=== PATIENT | female | born 1960 | race Caucasian/White ===

== ENCOUNTER 2017-11-21 17:21 | Observation (INO) ==
[2017-11-21] MEDS ORDERED: Nitroglycerin 0.4 MG TAB.SUBL SL ONE (17:39)
[2017-11-21] MEDS ORDERED: Aspirin 81 MG TAB.CHEW PO ONE (17:39)
[2017-11-21] MEDS ORDERED: 0.9 % Sodium Chloride 1,000 ML IVC ONE (17:40)
--- NOTE | 2017-11-21 17:42 | Emergency Department Note ---
Disposition Clinical Impression: Elevated blood pressure reading Chest pain Qualifiers: Chest pain type: unspecified Qualified Code(s): R07.9 - Chest pain, unspecified Disposition: Admitted As Inpatient Condition: Fair Referrals: Rex Dalton Jr, MD [Primary Care Provider] - Forms: ED Satisfaction Letter Time of Disposition: 19:27 Chest Pain HPI - General Chief Complaint: ED Chest Pain Stated Complaint: CP/SOB Time Seen by Provider: 11/21/17 17:30 Source: patient Mode of arrival: ambulatory Limitations: no limitations Vital Signs Reviewed: Yes Nursing Notes Reviewed: Yes - History of Present Illness HPI Narrative: 56-year-old female with a history of tachycardia presents for evaluation of chest pain and shortness of breath. Patient states symptom onset was an hour and a half prior to ED arrival. States that she was finished eating. At the time the patient states he felt nauseous and had sharp retrosternal chest pain with prominent left-sided features. Patient was not exerting herself the time. Patient denies any vomiting or diaphoresis. Patient reports an episode of diarrhea. Patient states that she had a difficult time catching her breath. Patient states that the pain has since been improving since arrival to the ED. Patient denies any fevers. States he has had a history of headache and fever in the past. Patient denies any abdominal pain. Severity scale (1-10): 3 - Related Data Home Medications Medication Instructions Recorded Confirmed Levothyroxine [Synthroid] 50 mcg PO 0630 04/09/16 04/09/16 Verapamil HCl [Verapamil ER] 240 mg PO DAILY 04/09/16 04/09/16 Previous Rx's Medication Instructions Recorded HYDROcodone/Acet 5/325 mg [[place] 1 tab PO Q4H PRN #10 tab 04/09/16 5-325 mg] cephALEXin [Cephalexin] 500 mg PO BID #14 tablet 11/17/17 Allergies Allergy/AdvReac Type Severity Reaction Status Date / Time No Known Allergies Allergy Verified 04/09/16 11:40 All systems ED: reviewed and negative except as stated. Constitutional: Denies: fever Cardiovascular: Reports: chest pain Respiratory: Reports: dyspnea. Denies: cough Gastrointestinal: Reports: diarrhea. Denies: abdominal pain, nausea, vomiting Chest Pain PMH - Past Medical History Medical history: Reports: arthritis, thyroid disease Psychiatric history: Reports: no psych history - Social History Smoking Status: Never smoker Alcohol use: Reports: none Drug use: Reports: none Physical Exam - General Limitations: no limitations General appearance: alert, in no apparent distress - Head Head exam: atraumatic, normocephalic, normal inspection - Eye Eye exam: Present: normal appearance, PERRL, EOMI - ENT ENT exam: normal exam, normal oropharynx, mucous membranes moist - Neck Neck exam: Present: normal inspection, full ROM - Chest Chest inspection: Present: normal inspection, symmetric chest wall rise - Respiratory Respiratory exam: Present: normal lung sounds bilaterally. Absent: respiratory distress - Cardiovascular Cardiovascular exam: Present: regular rate, normal rhythm - Abdominal Exam Abdominal exam: Present: soft, Non-Tender - Extremities Exam Extremities exam: Present: normal inspection. Absent: pedal edema - Back Exam Back exam: Present: normal inspection. Absent: CVA tenderness (R), CVA tenderness (L) - Neurological Exam Neurological exam: Present: alert, oriented X3, CN II-XII intact - Skin Skin exam: Present: warm, dry, intact, normal color Course Course Narrative: Patient seen and examined. Patient appears to be in no acute distress. Patient will get the basic cardiac evaluation with EKG, troponin, chest x-ray. Patient was notably hypertensive. Patient will also be given aspirin and nitroglycerin. Patient was deemed low risk [place] and will get a d-dimer. - Reevaluation(s) Reevaluation #1: Patient reports a relief of pain following nitro. Time: 18:10 Reevaluation #2: Patient continues to be resting comfortably. No acute distress. Time: 18:24 Reevaluation #3: Patient seen and examined. Patient's resting comfortably. Patient's updated on plan of care. Recommend admission. Patient's agreeable. Time: 19:32 Vital Signs Temperature 97.6 F 11/21/17 17:23 Pulse Rate 61 11/21/17 17:23 Respiratory Rate 18 11/21/17 17:23 Blood Pressure 160/80 11/21/17 17:23 O2 Sat by Pulse Oximetry 99 11/21/17 17:23 Temperature 97.6 F 11/21/17 17:23 Pulse Rate 60 11/21/17 18:37 Respiratory Rate 13 11/21/17 18:37 Blood Pressure 141/79 11/21/17 18:37 O2 Sat by Pulse Oximetry 99 11/21/17 18:37 Oxygen Delivery Oxygen Delivery Room Air Chest Pain - MDM Narrative Medical decision making narrative: Patient presents with concerns of chest pain. Patient had a moderately suspicious story. Patient's labs reviewed. Patient had a single troponin given the time frame is not consistently rule out ACS. Patient's EKG shows no acute abnormalities. Initial left axis deviation prior to past EKGs. Patient was given aspirin as well as nitroglycerin. Patient's chest pain resolved after nitroglycerin. Patient's resting comfortably. Heart scores 4. Given the patient's clinical exam and improvement with nitroglycerin with elevated blood pressure the patient should be admitted to the hospital service for further evaluation monitoring. Patient did not have heparin started emergency department as her chest pain is free with no elevated troponin. - Lab Data Lab results reviewed: Yes I reviewed the patient's lab results. Result diagrams: 11/21/17 17:57 11/21/17 17:57 Lab Results 11/21/17 11/21/17 11/21/17 Range/Units 17:57 17:57 17:57 WBC (4.3-11.1) K/mcL RBC (3.82-4.97) M/mcL Hgb (11.5-15.4) g/dL Hct (35.3-44.9) % MCV (83.0-100.0) fL MCH (28.0-33.3) pg MCHC (31.6-35.5) g/dL RDW (11.5-14.5) % Plt Count (140-400) K/mcL MPV (9.4-12.4) fL Immature Gran % (0-4) % Seg Neutrophils % % Lymphocytes % % Monocytes % % Eosinophils % % Basophils % % Neutrophils # (1.6-8.9) K/mcL Lymphocytes # (0.6-4.6) K/mcL Monocytes # (0.0-1.3) K/mcL Eosinophils # (0.0-0.6) K/mcL Basophils # (0.0-0.2) K/mcL D-Dimer 846 H (0-500) ng/mLFEU Sodium (136-145) mEq/L Potassium (3.5-5.1) mEq/L Chloride (98-107) mEq/L Carbon Dioxide (23-29) mEq/L BUN (6-20) mg/dL Creatinine (0.60-1.20) mg/dL Est GFR ( Amer) (> 60) Est GFR (Non-Af Amer) (> 60) BUN/Creatinine Ratio (6-26) Glucose (70-105) mg/dL Calculated Osmolality (280-300) Calcium (8.6-10.3) mg/dL Troponin I (< 0.04) ng/mL B-Natriuretic Peptide 35 (Less than 100) pg/mL Lipase 31 (11-82) Units/L 11/21/17 11/21/17 Range/Units 17:57 17:57 WBC 9.7 (4.3-11.1) K/mcL RBC 4.90 (3.82-4.97) M/mcL Hgb 13.5 (11.5-15.4) g/dL Hct 41.7 (35.3-44.9) % MCV 85.1 (83.0-100.0) fL MCH 27.6 L (28.0-33.3) pg MCHC 32.4 (31.6-35.5) g/dL RDW 14.7 H (11.5-14.5) % Plt Count 317 (140-400) K/mcL MPV 9.9 (9.4-12.4) fL Immature Gran % 0.4 (0-4) % Seg Neutrophils % 55.0 % Lymphocytes % 33.6 % Monocytes % 8.2 % Eosinophils % 2.4 % Basophils % 0.4 % Neutrophils # 5.3 (1.6-8.9) K/mcL Lymphocytes # 3.3 (0.6-4.6) K/mcL Monocytes # 0.8 (0.0-1.3) K/mcL Eosinophils # 0.2 (0.0-0.6) K/mcL Basophils # 0.0 (0.0-0.2) K/mcL D-Dimer (0-500) ng/mLFEU Sodium 141 (136-145) mEq/L Potassium 3.8 (3.5-5.1) mEq/L Chloride 105 (98-107) mEq/L Carbon Dioxide 26 (23-29) mEq/L BUN 18 (6-20) mg/dL Creatinine 0.76 (0.60-1.20) mg/dL Est GFR ( Amer) > 60 (> 60) Est GFR (Non-Af Amer) > 60 (> 60) BUN/Creatinine Ratio 24 (6-26) Glucose 100 (70-105) mg/dL Calculated Osmolality 294 (280-300) Calcium 9.3 (8.6-10.3) mg/dL Troponin I < 0.03 (< 0.04) ng/mL B-Natriuretic Peptide (Less than 100) pg/mL Lipase (11-82) Units/L - Radiology Data Radiology results reviewed: Yes I reviewed the patient's radiology results. Chest X-Ray 11/21/17 17:39 IMPRESSION: No acute process. D/ / Hany Huerta MD / Hany Huerta MD Interpreting Provider: Hany Huerta MD Chest X-Ray 11/21/17 17:39 IMPRESSION: No acute process. D/ / Hany Huerta MD / Hany Huerta MD Interpreting Provider: Hany Huerta MD Chest CTA 11/21/17 18:22 IMPRESSION: No evidence of pulmonary embolism or acute pulmonary abnormality. D/ / 11/21/2017 19:21:57 Hernandez Arndt MD / Crystal Guzman Interpreting Provider: Hernandez Arndt MD - EKG Data EKG attestation: Yes I reviewed and interpreted this EKG. EKG shows normal: sinus rhythm Rate: normal Rhythm: NSR [place]/QRS: left axis deviation T wave inversions noted in: aVR, v1 When compared to previous EKG there are: no significant changes Interpretation: no acute changes, nonspecific ST-T wave changes Heart Score - Score History: Moderately Suspicious EKG: Non Specific repolarisation Disturbance Age: 45-65 Risk Factors: 1-2 risk factors Troponin: Less than normal limit HEART Score Total: 4 S.B.A.R. - S.B.A.R. Situation: Demographics Background: Presenting Complaint Assessment: Vital Signs, Course and respsone to treatment, Patient/Family Expectation Recommendation: Barrier(s) to disposition, Recommendation based on pending studies, treatments, or consults SAlaina Report Given to: Dr. Wil Finnegan Repor Time: 19:27 Attestation Statement - Attestation Attestation: I, Tristan Diaz DO, examined this patient [id number] and my medical decision-making was reviewed with Dr. Lev Foss, Resident Physician. I agree with the documented findings, disposition and treatment plan as described except to the extent set forth below. Please see my progress notes for details.
[2017-11-21 18:09] LABS: Basophils % 0.4 %; Eosinophils # 0.2 K/mcL (0.0-0.6); Eosinophils % 2.4 %; Hematocrit 41.7 % (35.3-44.9); Hemoglobin 13.5 g/dL (11.5-15.4); Immature Granulocytes % 0.4 % (0-4); Lymphocytes # 3.3 K/mcL (0.6-4.6); Lymphocytes % 33.6 %; Mean Corpuscular HGB Conc 32.4 g/dL (31.6-35.5); Mean Corpuscular Hemoglobin 27.6 pg (28.0-33.3); Mean Corpuscular Volume 85.1 fL (83.0-100.0); Mean Platelet Volume 9.9 fL (9.4-12.4); Monocytes # 0.8 K/mcL (0.0-1.3); Monocytes % 8.2 %; Neutrophils # 5.3 K/mcL (1.6-8.9); Platelet Count 317 K/mcL (140-400); Red Cell Distribution Width 14.7 % (11.5-14.5)
[2017-11-21] MEDS ORDERED: Isovue-370 500 ML INFUS..BTL IV ONE (18:22)
[2017-11-21 18:36] LABS: BUN/Creatinine Ratio 24 (6-26); Blood Urea Nitrogen 18 mg/dL (6-20); Calcium 9.3 mg/dL (8.6-10.3); Carbon Dioxide 26 mEq/L (23-29); Chloride 105 mEq/L (98-107); Glucose 100 mg/dL (70-105); Osmolality,Calculated 294 (280-300); Potassium 3.8 mEq/L (3.5-5.1); Sodium 141 mEq/L (136-145); eGFR For African Americans > 60 (> 60); eGFR For Non-African Americans > 60 (> 60)
[2017-11-21 18:37] LABS: Troponin I < 0.03 ng/mL (< 0.04)
--- NOTE | 2017-11-21 19:48 | Emergency Department Note ---
Disposition Clinical Impression: Elevated blood pressure reading Chest pain Qualifiers: Chest pain type: unspecified Qualified Code(s): R07.9 - Chest pain, unspecified Disposition: Admitted As Inpatient Condition: Good Referrals: Rex Dalton Jr, MD [Primary Care Provider] - Forms: ED Satisfaction Letter Time of Disposition: 20:01 Chest Pain HPI - General Chief Complaint: ED Chest Pain Stated Complaint: CP/SOB Time Seen by Provider: 11/21/17 17:30 Source: patient Mode of arrival: ambulatory Limitations: no limitations - History of Present Illness Severity scale (1-10): 3 - Related Data Home Medications Medication Instructions Recorded Confirmed Levothyroxine [Synthroid] 50 mcg PO 0630 04/09/16 04/09/16 Verapamil HCl [Verapamil ER] 240 mg PO DAILY 04/09/16 04/09/16 Previous Rx's Medication Instructions Recorded HYDROcodone/Acet 5/325 mg [[place] 1 tab PO Q4H PRN #10 tab 04/09/16 5-325 mg] cephALEXin [Cephalexin] 500 mg PO BID #14 tablet 11/17/17 Allergies Allergy/AdvReac Type Severity Reaction Status Date / Time No Known Allergies Allergy Verified 04/09/16 11:40 Constitutional: Denies: fever Cardiovascular: Reports: chest pain Respiratory: Reports: dyspnea. Denies: cough Gastrointestinal: Reports: diarrhea. Denies: abdominal pain, nausea, vomiting Chest Pain PMH - Past Medical History Medical history: Reports: arthritis, thyroid disease Psychiatric history: Reports: no psych history - Social History Smoking Status: Never smoker Alcohol use: Reports: none Drug use: Reports: none Physical Exam - General Limitations: no limitations General appearance: alert, in no apparent distress Course Vital Signs Temperature 97.6 F 11/21/17 17:23 Pulse Rate 61 11/21/17 17:23 Respiratory Rate 18 11/21/17 17:23 Blood Pressure 160/80 11/21/17 17:23 O2 Sat by Pulse Oximetry 99 11/21/17 17:23 Temperature 97.6 F 11/21/17 17:23 Pulse Rate 60 11/21/17 18:37 Respiratory Rate 13 11/21/17 18:37 Blood Pressure 141/79 11/21/17 18:37 O2 Sat by Pulse Oximetry 99 11/21/17 18:37 Oxygen Delivery Oxygen Delivery Room Air Chest Pain - Lab Data Result diagrams: 11/21/17 17:57 11/21/17 17:57 Lab Results 11/21/17 11/21/17 11/21/17 Range/Units 17:57 17:57 17:57 WBC (4.3-11.1) K/mcL RBC (3.82-4.97) M/mcL Hgb (11.5-15.4) g/dL Hct (35.3-44.9) % MCV (83.0-100.0) fL MCH (28.0-33.3) pg MCHC (31.6-35.5) g/dL RDW (11.5-14.5) % Plt Count (140-400) K/mcL MPV (9.4-12.4) fL Immature Gran % (0-4) % Seg Neutrophils % % Lymphocytes % % Monocytes % % Eosinophils % % Basophils % % Neutrophils # (1.6-8.9) K/mcL Lymphocytes # (0.6-4.6) K/mcL Monocytes # (0.0-1.3) K/mcL Eosinophils # (0.0-0.6) K/mcL Basophils # (0.0-0.2) K/mcL D-Dimer 846 H (0-500) ng/mLFEU Sodium (136-145) mEq/L Potassium (3.5-5.1) mEq/L Chloride (98-107) mEq/L Carbon Dioxide (23-29) mEq/L BUN (6-20) mg/dL Creatinine (0.60-1.20) mg/dL Est GFR ( Amer) (> 60) Est GFR (Non-Af Amer) (> 60) BUN/Creatinine Ratio (6-26) Glucose (70-105) mg/dL Calculated Osmolality (280-300) Calcium (8.6-10.3) mg/dL Troponin I (< 0.04) ng/mL B-Natriuretic Peptide 35 (Less than 100) pg/mL Lipase 31 (11-82) Units/L 11/21/17 11/21/17 Range/Units 17:57 17:57 WBC 9.7 (4.3-11.1) K/mcL RBC 4.90 (3.82-4.97) M/mcL Hgb 13.5 (11.5-15.4) g/dL Hct 41.7 (35.3-44.9) % MCV 85.1 (83.0-100.0) fL MCH 27.6 L (28.0-33.3) pg MCHC 32.4 (31.6-35.5) g/dL RDW 14.7 H (11.5-14.5) % Plt Count 317 (140-400) K/mcL MPV 9.9 (9.4-12.4) fL Immature Gran % 0.4 (0-4) % Seg Neutrophils % 55.0 % Lymphocytes % 33.6 % Monocytes % 8.2 % Eosinophils % 2.4 % Basophils % 0.4 % Neutrophils # 5.3 (1.6-8.9) K/mcL Lymphocytes # 3.3 (0.6-4.6) K/mcL Monocytes # 0.8 (0.0-1.3) K/mcL Eosinophils # 0.2 (0.0-0.6) K/mcL Basophils # 0.0 (0.0-0.2) K/mcL D-Dimer (0-500) ng/mLFEU Sodium 141 (136-145) mEq/L Potassium 3.8 (3.5-5.1) mEq/L Chloride 105 (98-107) mEq/L Carbon Dioxide 26 (23-29) mEq/L BUN 18 (6-20) mg/dL Creatinine 0.76 (0.60-1.20) mg/dL Est GFR ( Amer) > 60 (> 60) Est GFR (Non-Af Amer) > 60 (> 60) BUN/Creatinine Ratio 24 (6-26) Glucose 100 (70-105) mg/dL Calculated Osmolality 294 (280-300) Calcium 9.3 (8.6-10.3) mg/dL Troponin I < 0.03 (< 0.04) ng/mL B-Natriuretic Peptide (Less than 100) pg/mL Lipase (11-82) Units/L Heart Score - Score History: Moderately Suspicious EKG: Non Specific repolarisation Disturbance Age: 45-65 Risk Factors: 1-2 risk factors Troponin: Less than normal limit HEART Score Total: 4 Attestation Statement - Attestation Attestation: ITristan DO, examined this patient [id number] and my medical decision-making was reviewed with Dr. Lev Foss, Resident Physician. I agree with the documented findings, disposition and treatment plan as described except to the extent set forth below. Please see my progress notes for details. 56-year-old female presents to the emergency room for evaluation of chest discomfort and pain. Patient had this on and off in the past. Denies any fevers or chills nausea vomiting or diarrhea. Denies any headache vision changes this time. Denies any shortness of breath. Patient has a history of previous symptoms are similar to this but did not have that time. Patient has a family history of early cardiac disease. She does not have any specific history of hypertension hyperlipidemia diabetes. Patient was given 1 sublingual nitroglycerin that relieved the remainder of her symptoms completed that time. Aspirin was also given. Patient did have an elevated d-dimer CT angiography chest x-ray the chest x-ray was unremarkable. CT angiography was negative for acute signs of pulmonary emboli or pneumonia. EKG and troponin were unremarkable this time. Patient will be clinically evaluated and admitted for what appears to be ACS rule out. Patient did have anginal-like presentation and responded nicely. Physical exam is unremarkable aside from the presenting chest discomfort and complaint. Lungs are clear heart is regular abdomen is soft nontender nondistended with no guarding no rigidity no peritoneal symptoms. She has no pitting edema or swelling in the bilateral lower extremities. Pulses are intact. Patient is otherwise been clinically stable sedentary treatment course here in the emergency room and in no apparent distress. Patient will be admitted for further workup and management at the hospital setting. No critical care provider this patient's treatment course at this time. See detailed documentation of the physical exam, medical intervention, medical decision-making and disposition in the resident physician' s note.
[2017-11-21] MEDS ORDERED: Naloxone 0.4 MG/ML INJ IVP PRN (20:56)
[2017-11-21] MEDS ORDERED: Nitroglycerin 0.4 MG TAB.SUBL SL PRN (21:03)
--- NOTE | 2017-11-21 21:06 | Internal Med History&Physical ---
Date of Encounter: 11/21/17 Time of Encounter: 21:06 Internal Medicine - H&P: HPI Chief complaint: chest pain Admitted From: Emergency Dept Plans for Post Hospital Care: Home History of present illness: Ms. Reynolds is a 56 year old female has a background history of for hypothyroidism. Patient was brought to the emergency department by her as patient has a persistent chest pain along with the shortness of breath which started precisely at 4 PM. Patient's family member called squad but it took a while to get a called there and that is the reason patient's brought the patient to emergency room for further evaluation. Patient denies abdominal pain, nausea , vomiting, and dizziness and diarrhea. Workup in the emergency room: Patient was evaluated in the emergency room. Basic labs were drawn. EKG was done. Reason for admission: Chest pain to rule out ACS. Past Med Surg Social Fam HX - Past Medical History Medical history: arthritis, thyroid disease Psychiatric history: no psych history - Social History Smoking Status: Never smoker Smokeless Tobacco Status: No Alcohol use: none Drug use: none Internal Medicine - H&P: Meds Levothyroxine [Synthroid] 50 mcg PO 0630 04/09/16 [History] Verapamil HCl [Verapamil ER] 240 mg PO DAILY 04/09/16 [History] cephALEXin [Cephalexin] 500 mg PO BID #14 tablet 11/17/17 [Rx] 3 Allergy/AdvReac Type Severity Reaction Status Date / Time No Known Allergies Allergy Verified 04/09/16 11:40 All Systems PM: A 10-system review of systems was performed and is negative for pertinent findings except as documented above in the HPI. - Constitutional Constitutional: no chills, no fever(s), no night sweats - EENT Eyes: no change in vision, no discharge, no pain, no photophobia Ears: no ear discharge, no ear pain, no tinnitus Nose, mouth and throat: no dysphagia, no nasal discharge, no neck pain, no sore throat - Cardiovascular Cardiovascular ROS IM: chest pain, no diaphoresis, no dyspnea, no lightheadedness, no palpitations, no syncope - Respiratory Respiratory: no cough, no dyspnea, no wheezing, no excessive phlegm production - Gastrointestinal Gastrointestinal: no abdominal pain, no diarrhea, no hematemesis, no hematochezia, no melena, no nausea, no vomiting - Genitourinary Genitourinary: no change in urinary stream, no dysuria, no flank pain, no hematuria - Musculoskeletal Musculoskeletal ROS IM: no numbness, no tingling - Integumentary Integumentary IM: no rash, no unusual bruising - Neurological Neurological ROS: no confusion, no convulsions, no focal weakness, no numbness, no tingling, no tremor(s) - Hematologic/Lymphatic Hematologic/Lymphatic: no easy bruising - Constitutional Vitals: Temp Pulse Resp BP Pulse Ox 97.6 F 60 13 141/79 99 11/21/17 17:23 11/21/17 18:37 11/21/17 18:37 11/21/17 18:37 11/21/17 18:37 General appearance: Present: A&O X 3, pleasant, no acute distress, answers questions appropriately - Head Head exam: Present: atraumatic, normocephalic - Eye Eye exam: Present: PERRL, conjuntiva pink, sclera anicteric Pupils: Present: PERRL - Neck Neck exam general surgery: Present: supple, trachea midline. Absent: lymphadenopathy - Respiratory Respiratory exam: Present: CTAB. Absent: accessory muscle use, rales, rhonchi, wheezes - Cardiovascular Cardiovascular exam: Present: RRR, +S1, +S2. Absent: diastolic murmur, gallop, rubs, systolic murmur - GI/Abdominal GI/Abdominal exam: Present: normal bowel sounds, soft, no peritoneal signs. Absent: distended, tenderness - Extremities Exam Extremities exam: Present: warm, radial pulses palpable and symmetrical. Absent : calf tenderness, cyanotic, pedal edema - Neurological Exam Neurological exam: Present: CN II-XII intact, oriented X3, no focal deficits. Absent: pronater drift, facial droop, speech deficit - Skin Skin exam: Present: dry, intact Internal Med - H&P Results - Labs CBC & Chem 7: 11/21/17 17:57 11/21/17 17:57 Labs: Short CBC 11/21/17 Range/Units 17:57 WBC 9.7 (4.3-11.1) K/mcL Hgb 13.5 (11.5-15.4) g/dL Hct 41.7 (35.3-44.9) % Plt Count 317 (140-400) K/mcL Neutrophils # 5.3 (1.6-8.9) K/mcL BMP 11/21/17 17:57 Sodium 141 Potassium 3.8 Chloride 105 Carbon Dioxide 26 BUN 18 Creatinine 0.76 Glucose 100 Calcium 9.3 Cardiac Enzymes 11/21/17 Range/Units 17:57 Troponin I < 0.03 (< 0.04) ng/mL - Impressions ITS Impressions Chest X-Ray 11/21/17 17:39 IMPRESSION: No acute process. D/ / Hany Huerta MD / Hany Huerta MD Interpreting Provider: Hany Huerta MD Chest CTA 11/21/17 18:22 IMPRESSION: No evidence of pulmonary embolism or acute pulmonary abnormality. D/ / 11/21/2017 19:21:57 Hernandez Arndt MD / Crystal Guzman Interpreting Provider: Hernandez Arndt MD - Assessment and plan (1) Chest pain Current Visit: Yes Status: Acute Assessment and plan: 56/female Background history of hypothyroidism. Admitted with chest pain/chest discomfort. EKG: Nonspecific ST-T changes. Troponin: First set negative Plan: Admit as observation. Cardiac bed. Cycle troponin. Echocardiogram. If 3 troponins negative and echocardiogram is normal and then please consider stress test. Plan of care discussed with the patient. I have examined this patient in emergency room #11. All questions answered. Qualifiers: Chest pain type: unspecified Qualified Code(s): R07.9 - Chest pain, unspecified (2) Elevated blood pressure reading Current Visit: Yes Status: Acute Assessment and plan: Patient has elevated blood pressure. We will closely monitor her blood pressure. We will try to get her pain under control. (3) DVT prophylaxis Current Visit: Yes Status: Acute Assessment and plan: SCD Medical decision making: This patient has a moderate to severe risk of worsening in spite of being on appropriate medication due to the underlying complex comorbid conditions. - Time Spent With Patient Total time spent is greater than 50% in coordination of care (as documented) at patient's floor/unit and/or counseling patient:
[2017-11-22] MEDS ORDERED: Acetaminophen 325 MG TABLET PO PRN (06:27)
[2017-11-22 06:54] LABS: Prothrombin Time 11.2 Seconds (9.4-12.1)
[2017-11-22 06:56] LABS: Basophils # 0.1 K/mcL (0.0-0.2); Basophils % 0.6 %; Eosinophils # 0.3 K/mcL (0.0-0.6); Eosinophils % 3.4 %; Hemoglobin 13.2 g/dL (11.5-15.4); Immature Granulocytes % 0.4 % (0-4); Lymphocytes # 3.1 K/mcL (0.6-4.6); Lymphocytes % 39.2 %; Mean Corpuscular HGB Conc 32.2 g/dL (31.6-35.5); Mean Corpuscular Hemoglobin 27.5 pg (28.0-33.3); Mean Corpuscular Volume 85.4 fL (83.0-100.0); Mean Platelet Volume 10.2 fL (9.4-12.4); Monocytes # 0.6 K/mcL (0.0-1.3); Monocytes % 7.3 %; Neutrophils # 3.9 K/mcL (1.6-8.9); Platelet Count 305 K/mcL (140-400); Red Cell Distribution Width 14.6 % (11.5-14.5); Segmented Neutrophils % 49.1 %
[2017-11-22 07:09] LABS: Troponin I < 0.03 ng/mL (< 0.04)
[2017-11-22 07:10] LABS: Alanine Aminotransferase 12 Units/L (7-52); Albumin 3.4 g/dL (3.5-5.7); Albumin/Globulin Ratio 1.2 (1.1-2.2); Alkaline Phosphatase 65 Units/L (34-104); Aspartate Amino Transferase 15 Units/L (13-39); BUN/Creatinine Ratio 21 (6-26); Bilirubin,Total 0.3 mg/dL (0.3-1.0); Blood Urea Nitrogen 12 mg/dL (6-20); Calcium 8.5 mg/dL (8.6-10.3); Carbon Dioxide 25 mEq/L (23-29); Chloride 108 mEq/L (98-107); Chol/HDL Ratio 4.3 (0-4.9); Cholesterol 181 mg/dL (< 200); Globulin 2.9 g/dL (2.4-3.5); Glucose 99 mg/dL (70-105); HDL Cholesterol 42 mg/dL (40-59); LDL Cholesterol,Calculated 112 mg/dL (0-99); Magnesium 1.9 mg/dL (1.6-2.6); Osmolality,Calculated 290 (280-300); Phosphorous 3.7 mg/dL (2.7-4.5); Potassium 3.5 mEq/L (3.5-5.1); Sodium 140 mEq/L (136-145); Total Protein 6.3 g/dL (6.4-8.9); Triglycerides 135 mg/dL (< 150); eGFR For African Americans > 60 (> 60); eGFR For Non-African Americans > 60 (> 60)
[2017-11-22] MEDS: Aspirin Enteric Coated 81 MG Tablet PO SCH (08:12)
[2017-11-22] MEDS: Verapamil ER (24 HR) 240 MG TABLET.ER PO SCH (08:12)
[2017-11-22] MEDS ORDERED: *HR* HYDROcodone/Acet 5/325 mg TABLET PO PRN (09:32)
--- NOTE | 2017-11-22 10:17 | Internal Med Progress Note ---
Date of Encounter: 11/22/17 Time of Encounter: 10:17 - Assessment and plan (1) Chest pain Current Visit: Yes Status: Acute Assessment and plan: 56/female Background history of hypothyroidism. Admitted with chest pain/chest discomfort. EKG: Nonspecific ST-T changes. Troponin: Negative 3 Awaiting echo results NPO after midnight stress test in a.m. Qualifiers: Chest pain type: unspecified Qualified Code(s): R07.9 - Chest pain, unspecified (2) Elevated blood pressure reading Current Visit: Yes Status: Acute Assessment and plan: Closely monitor-control pain (3) Headache Current Visit: Yes Status: Acute Assessment and plan: Patient has been experiencing frontal headache which she describes as throbbing she has some photophobia denies any nausea or vomiting. She did present to the ER with these symptoms and underwent a CT of head which was negative. She has used OTC medications with little relief. We will give Imitrex to see if this will relieve her pain. Consult neurology as needed Qualifiers: Headache type: unspecified Headache chronicity pattern: acute headache Intractability: intractable Qualified Code(s): R51 - Headache (4) DVT prophylaxis Current Visit: Yes Status: Acute Assessment and plan: SCD - Time Spent With Patient Total time spent is greater than 50% in coordination of care (as documented) at patient's floor/unit and/or counseling patient: - Constitutional Vitals: Temp Pulse Resp BP Pulse Ox 97.9 F 54 14 145/82 95 11/22/17 07:07 11/22/17 07:07 11/22/17 07:07 11/22/17 07:07 11/22/17 08:16 General appearance: Present: A&O X 3, pleasant, no acute distress, answers questions appropriately Internal Medicine: Result - Labs CBC & Chem 7: 11/22/17 06:32 11/22/17 06:32 Labs: Short CBC 11/22/17 Range/Units 06:32 WBC 7.9 (4.3-11.1) K/mcL Hgb 13.2 (11.5-15.4) g/dL Hct 41.0 (35.3-44.9) % Plt Count 305 (140-400) K/mcL Neutrophils # 3.9 (1.6-8.9) K/mcL BMP 11/22/17 06:32 Sodium 140 Potassium 3.5 Chloride 108 H Carbon Dioxide 25 BUN 12 Creatinine 0.57 L Glucose 99 Calcium 8.5 L Cardiac Enzymes 11/22/17 Range/Units 06:32 Troponin I < 0.03 (< 0.04) ng/mL Liver Function 11/22/17 Range/Units 06:32 Total Bilirubin 0.3 (0.3-1.0) mg/dL AST 15 (13-39) Units/L ALT 12 (7-52) Units/L Alkaline Phosphatase 65 (34-104) Units/L Albumin 3.4 L (3.5-5.7) g/dL - ABG Interpretation ABG results: PT/INR, D-dimer PT 11.2 Seconds (9.4-12.1) 11/22/17 06:32 D-Dimer 846 ng/mLFEU (0-500) H 11/21/17 17:57 Consult Discharge Plan - Plan Referrals: Rex Dalton Jr, MD [Primary Care Provider] -
[2017-11-22] MEDS ORDERED: SUMAtriptan succinate 25 MG TABLET PO ONE (17:35)
[2017-11-22] MEDS ORDERED: OXYCODONE Oral CONC 10 MG/0.5 ML ORAL.SYG SL PRN (19:42)
[2017-11-23] MEDS ORDERED: Regadenoson 0.4 MG/5 ML SYRINGE IVP ONE (05:23)
[2017-11-23] MEDS: Aspirin Enteric Coated 81 MG Tablet PO SCH (09:17)
[2017-11-23] MEDS: Verapamil ER (24 HR) 240 MG TABLET.ER PO SCH (09:17)
[2017-11-23 11:50] VITALS: BP 136/82
--- NOTE | 2017-11-23 13:11 | Discharge Summary ---
- NOTES TO OUTPATIENT PROVIDER Notes to Outpatient Provider: Exercise nuclear stress test negative for any ischemia or infarct Orders not resulted at time of discharge: Pending orders 11/22/17 17:31 NM diane perf SPECT multi [NM] Routine Date of Encounter: 11/23/17 Time of Encounter: 13:11 - Discharge Diagnosis (1) Chest pain Priority: Primary Status: Acute Qualifiers: Chest pain type: unspecified Qualified Code(s): R07.9 - Chest pain, unspecified (2) Elevated blood pressure reading Priority: Secondary Status: Acute (3) Headache Priority: Secondary Status: Acute Qualifiers: Headache type: unspecified Headache chronicity pattern: acute headache Intractability: intractable Qualified Code(s): R51 - Headache Hospital course: Ms. Reynolds is a 56 year old female past medical history of hypothyroidism. Patient was originally brought to the emergency department by her after experiencing chest pain and shortness of breath. EKG and troponins were unremarkable d-dimer was elevated CTA was completed negative for any acute signs of PE or pneumonia. She did have a slightly elevated blood pressure she was given nitroglycerin that did relieve her symptoms. During admission she did complain of headache which she states has been going on since Thursday. Describes it as frontal throbbing aggravated by light. Denies any nausea or vomiting. Pain was relieved with oxycodone. Patient underwent a nuclear exercise stress test which was negative for any ischemia or infarct. Echo was completed which showed EF of 60% and moderate left ventricular diastolic dysfunction. Blood pressure has improved vital signs are stable lab work unremarkable. Patient states her headache is gone. Denies any chest pain or shortness of breath at this time. I did advise the patient to follow-up with her primary care provider since this provider knows her best and can adjust medications accordingly. Patient verbalized she has an appointment on Thursday. Advised patient to continue home medications. Patient's hemoglobin A1c stable at this time ready for discharge. - Time Spent with Patient Total time spent providing and/or coordinating discharge services: - Discharge Medications Home Medications: Levothyroxine [Synthroid] 50 mcg PO 0630 04/09/16 [History] Verapamil HCl [Verapamil ER] 240 mg PO DAILY 04/09/16 [History] Allergies/Adverse Reactions: 3 Allergy/AdvReac Type Severity Reaction Status Date / Time No Known Allergies Allergy Verified 04/09/16 11:40 Date of admission: 11/21/17 21:57 Primary care physician: Rex Dalton Jr, MD Discharging clinician: Glendy He Anticipated date of discharge: 11/23/17 - Constitutional Vitals: Temp Pulse Resp BP Pulse Ox 97.9 F 62 17 136/82 94 11/23/17 11:49 11/23/17 11:49 11/23/17 11:49 11/23/17 11:49 11/23/17 11:49 General appearance: Present: A&O X 3, pleasant, no acute distress, answers questions appropriately - Head Head exam: Present: atraumatic, normocephalic - Eye Eye exam: Present: PERRL, conjuntiva pink, sclera anicteric Pupils: Present: PERRL - Neck Neck exam general surgery: Present: supple, trachea midline. Absent: lymphadenopathy - Respiratory Respiratory exam: Present: CTAB. Absent: accessory muscle use, rales, rhonchi, wheezes - Cardiovascular Cardiovascular exam: Present: RRR, +S1, +S2. Absent: diastolic murmur, gallop, rubs, systolic murmur - GI/Abdominal GI/Abdominal exam: Present: normal bowel sounds, soft, no peritoneal signs. Absent: distended, tenderness - Extremities Exam Extremities exam: Present: warm, radial pulses palpable and symmetrical. Absent : calf tenderness, cyanotic, pedal edema - Neurological Exam Neurological exam: Present: CN II-XII intact, oriented X3, no focal deficits. Absent: pronater drift, facial droop, speech deficit - Skin Skin exam: Present: dry, intact - Patient Status Disposition: Home, Self-Care Condition: Good Functional capacity at discharge: independent ambulation Overall status at discharge: patient is back to baseline - Discharge Instructions Instructions: Chest Pain (DC) Follow Up With: Rex Dalton Jr, MD [Primary Care Provider] - 11/25/17 9:30 am - Diet and Activity Activity: resume usual activities as tolerated Diet: advance to your usual diet
--- NOTE | 2017-11-27 11:44 | Electrocardiograph Report ---
[place] [id number] Test Date: 2017-11-21 Pat Name: Abbie Reynolds Department: 104 Room: 3B Gender: F [employer]: KI : 1960 Requested By: Lev Foss Order Number: [id number] Reading MD: Rivera Otto Measurements Intervals [place] Rate: 61 P: 23 NC: 164 QRS: -20 QRSD: 101 T: 16 QT: 400 QTc: 403 Interpretive Statements SINUS RHYTHM VOLTAGE CRITERIA FOR LVH POOR R WAVE PROGRESSION NONSPECIFIC ST-T CHANGES Electronically Signed On 11-27-2017 11:42:47 EDT by Rivera Otto
== END 2017-11-23 14:07 | disposition home or self-care (01) ==
LOC: 3BNU 17:21 → EMEROO 17:21 → UNDODISOB 23:46 → 3BNU 11-22 00:02
PROVIDERS: ADMIT Pediatrics; ATTEND Registered Nurse